=== PATIENT | male | born 1935 | race Caucasian/White ===

== ENCOUNTER → 2018-03-25 | Outpatient (CLI) | payer MEDICARE ==
--- NOTE | 2018-03-25 21:19 | Diagnostic Imaging Report ---
Parathyroid Scan Reason for exam: Hyperparathyroidism Radiopharmaceutical: Tc-99m sestamibi 27 mCi After intravenous administration of the radiopharmaceutical, immediate and 2-hour planar images of the neck and upper chest were obtained. Tomographic images of the neck and upper chest were obtained following the initial planar images. A focal area of persistent tracer activity is seen inferior to the lower pole of the right thyroid lobe on the delayed planar images. No focal abnormality is identified on the initial planar and the tomographic images. Impression: Single enlarged hypermetabolic parathyroid gland is strongly suspected immediately inferior to the lower pole of the right thyroid lobe. Signed by: Dr. Joy Culver M.D. on 03/25/2018 9:16 PM
== END ==
LOC: NM 07:56
PROVIDERS: ATTEND Internal Medicine Medical Oncology
DX: E21.2 Other hyperparathyroidism (principal); E83.52 Hypercalcemia
CPT/HCPCS: 78071; 83970; A9500

== ENCOUNTER 2018-05-18 05:45 | Inpatient (IN) | payer MEDICARE ==
--- NOTE | 2018-05-15 10:00 | Diagnostic Imaging Report ---
PROCEDURE: X-RAY CHEST, TWO VIEWS COMPARISON: 07/07/2012. INDICATIONS: PREOPERATIVE CHEST XRAY FOR THYROID SURGERY FINDINGS: The lungs are well-inflated. No focal airspace consolidation, pleural effusion, or pneumothorax. Mild prominence of the pulmonary interstitium. Stable cardiomediastinal contour with tortuosity and atherosclerotic calcification of the thoracic aorta. Normal heart size. No acute osseous abnormalities. CONCLUSION: No acute cardiopulmonary abnormality. Mild interstitial prominence likely reflects age-related fibrotic changes. Dictated by: Reginaldo Garcia M.D. on 05/15/2018 at 10:10 Electronically approved by: Reginaldo Garcia M.D. on 05/15/2018 at 10:10
[2018-05-15 10:07] LABS: BASOPHILS # (AUTO) 0.5 (0.0-0.1); BASOPHILS % 2.3 % (0.0-1.0); EOSINOPHILS # (AUTO) 0.2 (0.0-0.4); EOSINOPHILS % 1.1 % (0.0-6.0); HEMATOCRIT 55.2 % (38.2-49.6); HEMOGLOBIN 16.9 g/dL (14.0-18.0); LYMPHOCYTES # (AUTO) 1.2 (1.0-3.2); LYMPHOCYTES % 6.2 % (18.0-39.1); MEAN CORPUSCULAR HEMOGLOBIN 26.5 pg (28-32); MEAN CORPUSCULAR HGB CONC 30.6 g/dL (31-35); MEAN CORPUSCULAR VOLUME 86.5 fL (81-99); MONOCYTES # (AUTO) 1.5 (0.2-0.8); MONOCYTES % 7.3 % (4.4-11.3); NEUTROPHILS # (AUTO) 15.9 (2.1-6.9); NEUTROPHILS % 79.6 % (38.7-80.0); PLATELET COUNT 584 x10e3/uL (140-360); RED BLOOD COUNT 6.38 x10e6/uL (4.3-5.7); RED CELL DISTRIBUTION WIDTH 22.8 % (11.7-14.4)
[2018-05-15 10:30] LABS: ALBUMIN 3.7 g/dL (3.5-5.0); ALBUMIN/GLOBULIN RATIO 0.9 (0.8-2.0); ANION GAP 12.3 mmol/L (8-16); CALCIUM 11.1 mg/dL (8.4-10.2); CREATININE, SERUM 1.21 mg/dL (0.72-1.25); POTASSIUM 4.3 mmol/L (3.5-5.1)
[2018-05-15 12:17] LABS: ANISOCYTOSIS SLIGHT; EOSINOPHILS % (MANUAL) 2 % (0-7); LYMPHOCYTES % (MANUAL) 3 % (19-48); MONOCYTES % (MANUAL) 5 % (3.4-9.0); NEUTROPHILS % (MANUAL) 85 % (40-74); PLATELET ESTIMATE SLIGHTLY INCREASED; PLATELET MORPHOLOGY COMMENT FEW LARGE; RBC MORPHOLOGY COMMENT NORMAL
[~2018-05-18] VITALS: Ht 170.2 cm; Wt 67.4 kg
[~2018-05-18 05:45] MED LIST: AMLODIPINE BESYL5 MG PO; ASPIR 8181 MG PO; ATORVASTATIN CA20 MG PO; AVODART0.5 MG PO; CENTRUM COMPLE1 EACH PO; HYDROCHLOROTHIA25 MG PO; TAMSULOSIN HCL0.4 MG PO
--- OUTSIDE RECORDS SUMMARY | 2018-05-18 05:47 | XMS REPORT ---
Author Author [facility] Address Unknown Phone Unavailable Care Team Providers Care Biomedical Engineering Technician Name Role Phone Alexei ELLIS Unavailable Unavailable CORY CARTER Unavailable Unavailable Problems This patient has no known problems. Allergies, Adverse Reactions, Alerts This patient has no known allergies or adverse reactions. Medications This patient has no known medications. Results Test Description Test Time Test Comments Text Results Atomic Results Result Comments CHEST 2 VIEWS 2018-05-15 10:10:00 [place] [address] Patient Name: VINAY RUSSELL MR #: [id number] : 1935 Age/Sex: 83/M Req #: [id number] Adm Physician: Ordered by: REKHA ELLIS MD Report #: [id number] Location: OR Room/Bed: Procedure: [id number] DX/CHEST 2 VIEWS Exam Date: 05/15/18 Exam Time: 0935 REPORT STATUS: Signed PROCEDURE: X-RAY CHEST, TWO VIEWS COMPARISON: 07/07/2012. INDICATIONS: PREOPERATIVE CHEST XRAY FOR THYROID SURGERY FINDINGS: The lungs are well-inflated. No focal airspace consolidation, pleural effusion, or pneumothorax. Mild prominence of the pulmonary interstitium. Stable cardiomediastinal contour with tortuosity and atherosclerotic calcification of the thoracic aorta. Normal heart size. No acute osseous abnormalities. CONCLUSION: No acute cardiopulmonary abnormality. Mild interstitial prominence likely reflects age-related fibrotic changes. Dictated by: Shine Cancino M.D. on 05/15/2018 at 10:10 Electronically approved by: Shine Cancino M.D. on 05/15/2018 at 10:10 Dictated By: SHINE CANCINO MD 1010 Transcribed By: THA on 05/15/18 1010 COPY TO: REKHA ELLIS MD PARATHYROID IMAGING W SPECT 2018-03-25 21:12:00 [place] [address] Patient Name: VINAY RUSSELL MR #: [id number] : 1935 Age/Sex: 83/M Req #: [id number] Adm Physician: Ordered by: CORY CARTER MD Report #: [id number] Location: [place] Room/Bed: Procedure: [id number] NM/PARATHYROID IMAGING W SPECT Exam Date: 03/25/18 Exam Time: 0835 REPORT STATUS: Signed Parathyroid Scan Reason for exam: Hyperparathyroidism Radiopharmaceutical: Tc-99m sestamibi 27 mCi After intravenous administration of the radiopharmaceutical, immediate and 2-hour planar images of the neck and upper chest were obtained. Tomographic images of the neck and upper chest were obtained following the initial planar images. A focal area of persistent tracer activity is seen inferior to the lower pole of the right thyroid lobe on the delayed planar images. No focal abnormality is identified on the initial planar and the tomographic images. Impression: Single enlarged hypermetabolic parathyroid gland is strongly suspected immediately inferior to the lower pole of the right thyroid lobe. Signed by: Dr. Justyna Culver M.D. on 03/25/2018 9:16 PM Dictated By: JUSTYNA CULVER MD 15 Transcribed By: SENAIT on 03/25/182115 COPY TO: CORY CARTER MD
[2018-05-18] MEDS ORDERED: BUPIVACAINE 0.25%/EPI 30ML SDV INJ ONE (08:16)
[2018-05-18] MEDS ORDERED: MORPHINE SULFATE INJ 4 MG/ML INJ IV PRN (10:30)
[2018-05-18] MEDS ORDERED: MORPHINE SULFATE 2 MG/ML SYR IV PRN (10:45)
[2018-05-18] MEDS ORDERED: FENTANYL CITRATE/PF 100MCG/2 ML INJ ONE ×2 (11:11→19:16)
--- NOTE | 2018-05-18 13:28 | Operative Report ---
DATE OF PROCEDURE: PREOPERATIVE DIAGNOSIS: Primary hyperparathyroidism. POSTOPERATIVE DIAGNOSIS: Primary hyperparathyroidism. OPERATION PERFORMED: Neck exploration with a resection of right lower parathyroid adenoma. PRODUCT ASSEMBLER: Dr. Miguel Mccormick and Cathryn MAYNARD. ANESTHESIA: General. COMPLICATIONS: None. ESTIMATED BLOOD LOSS: Minimal. DESCRIPTION OF PROCEDURE: With the patient lying in bed in the supine position under good general endotracheal anesthesia, the neck was prepped with Betadine solution and draped in the usual manner. A collar incision was made. It was carried down through the subcutaneous tissue and through the platysma. Flaps were then developed superiorly and inferiorly. The strap muscles were then at the midline, and the thyroid was identified. Flaps were then developed on both sides. Exploration of the right side of the neck at this point, the recurrent laryngeal nerve was identified and then the right lower pole parathyroid, which was tightly adherent to the lower pole of the right side of the thyroid, was obviously enlarged and consistent with the suspected parathyroid adenoma. The upper pole parathyroid on the right side was found to be small and present, consistent with a normal suppressed gland. The left side was then explored, and both the upper and lower parathyroids were identified. They were both small and suppressed. All of this was, therefore, consistent with an adenoma of the right lower parathyroid location. The adenoma was then resected and sent for pathological examination, which came back consistent with an adenoma. The neck was then irrigated. Hemostasis was ascertained, and the wound was then closed in layers. The strap muscles at the midline were then reapproximated with interrupted sutures of 3-0 Vicryl. The platysma was reapproximated with 3-0 Vicryl, and the skin was closed with clips. A dressing was applied. The sponge, lap and needle count was correct. The patient tolerated the procedure well and returned to the recovery room in stable condition. Job#: [id number] MANSOOR
[2018-05-18 13:56] VITALS: BP 144/63
[2018-05-18] MEDS ORDERED: LIDOCAINE HCL 2% LOCAL INJ 5 ML SDV VIAL INJ ONE (14:11)
[2018-05-18] MEDS ORDERED: SEVOFLURANE INHAL SOLN 250 ML PEN BTL ONE (14:11)
[2018-05-18] MEDS ORDERED: ONDANSETRON HCL INJ 2 MG/ML VIAL ONE (14:11)
[2018-05-18] MEDS ORDERED: ROCURONIUM BROMIDE 10 MG/ML 5ML VIAL ONE (14:11)
[2018-05-18] MEDS ORDERED: DEXAMETHASONE SOD PHOS INJ 4 MG/ML VIAL ONE (14:11)
[2018-05-18] MEDS ORDERED: PROPOFOL IV EMULSION 10 MG/ML 20 ML VIAL ONE (14:11)
[2018-05-18] MEDS ORDERED: VASOPRESSIN INJ 20 UNIT/ML VIAL ONE (14:11)
[2018-05-18] MEDS: DEXTROSE 5%/LACTATED RINGERS 1,000 ML IV SCH (14:30)
[2018-05-18 16:00] VITALS: BP 147/63
[2018-05-18] MEDS ORDERED: CEPACOL SORE THROAT LOZENGES PO PRN (18:00)
[2018-05-18 20:00] VITALS: BP 148/70
[2018-05-18 20:05] VITALS: BP 148/70
[2018-05-18] MEDS: ATORVASTATIN 20 MG TAB PO SCH (20:49)
[2018-05-18] MEDS: HYDROCODONE/APAP 5MG-325MG TAB PO PRN (22:30)
[2018-05-19] VITALS (8 sets, daily range): BP systolic 124–149; BP diastolic 58–65
[2018-05-19] MEDS: DEXTROSE 5%/LACTATED RINGERS 1,000 ML IV SCH ×2 (05:19→20:30)
[2018-05-19 06:01] LABS: BASOPHILS # (AUTO) 0.3 (0.0-0.1); BASOPHILS % 1.2 % (0.0-1.0); EOSINOPHILS # (AUTO) 0.1 (0.0-0.4); EOSINOPHILS % 0.6 % (0.0-6.0); HEMATOCRIT 49.6 % (38.2-49.6); HEMOGLOBIN 14.9 g/dL (14.0-18.0); LYMPHOCYTES # (AUTO) 1.1 (1.0-3.2); LYMPHOCYTES % 4.2 % (18.0-39.1); MEAN CORPUSCULAR VOLUME 86.6 fL (81-99); MONOCYTES # (AUTO) 1.3 (0.2-0.8); MONOCYTES % 5.3 % (4.4-11.3); NEUTROPHILS # (AUTO) 21.7 (2.1-6.9); NEUTROPHILS % 86.5 % (38.7-80.0); PLATELET COUNT 598 x10e3/uL (140-360); RED BLOOD COUNT 5.73 x10e6/uL (4.3-5.7); RED CELL DISTRIBUTION WIDTH 22.5 % (11.7-14.4)
[2018-05-19 06:39] LABS: ANION GAP 11.7 mmol/L (8-16); CALCIUM 10.3 mg/dL (8.4-10.2); CREATININE, SERUM 1.25 mg/dL (0.72-1.25); POTASSIUM 4.7 mmol/L (3.5-5.1)
[2018-05-19 08:14] LABS: BAND NEUTROPHILS % (MANUAL) 1 %; LYMPHOCYTES % (MANUAL) 6 % (19-48); MONOCYTES % (MANUAL) 4 % (3.4-9.0); MYELOCYTES % (MANUAL) 2 % (0-0); NEUTROPHILS % (MANUAL) 84 % (40-74)
[2018-05-19 08:15] LABS: ANISOCYTOSIS SLIGHT; PLATELET ESTIMATE SLIGHTLY INCREASED; PLATELET MORPHOLOGY COMMENT NORMAL; RBC MORPHOLOGY COMMENT NORMAL
[2018-05-19] MEDS: AMLODIPINE BESYLATE 5 MG TAB PO SCH (08:47)
[2018-05-19] MEDS: DUTASTERIDE 0.5 MG CAP PO SCH (08:47)
[2018-05-19] MEDS: HYDROCHLOROTHIAZIDE 25 MG TAB PO SCH (08:47)
[2018-05-19] MEDS: TAMSULOSIN HCL 0.4 MG CAP PO SCH (08:47)
[2018-05-19] MEDS: HYDROCODONE/APAP 5MG-325MG TAB PO PRN ×2 (09:09→17:38)
[2018-05-19] MEDS: ATORVASTATIN 20 MG TAB PO SCH (20:30)
[2018-05-20] VITALS: BP 149/67
[2018-05-20] MEDS: HYDROCODONE/APAP 5MG-325MG TAB PO PRN (00:08)
[2018-05-20 04:00] VITALS: BP 135/76
[2018-05-20 08:07] VITALS: BP 133/60
[2018-05-20 10:14] VITALS: BP 133/60
[2018-05-20] MEDS: TAMSULOSIN HCL 0.4 MG CAP PO SCH (10:14)
[2018-05-20] MEDS: AMLODIPINE BESYLATE 5 MG TAB PO SCH (10:14)
[2018-05-20] MEDS: DUTASTERIDE 0.5 MG CAP PO SCH (10:14)
[2018-05-20] MEDS: HYDROCHLOROTHIAZIDE 25 MG TAB PO SCH (10:14)
[2018-05-20 12:19] VITALS: BP 149/67
[2018-05-20] MEDS ORDERED: TYLENOL # 31 EA PO (14:30)
[2018-05-20] MEDS ORDERED: KEFLEX500 MG PO (14:31)
[2018-06-19] MEDS ORDERED: ALPRAZOLAM0.25 MG PO (15:18)
== END 2018-05-20 15:44 | disposition home or self-care (01) | DRG 627 ==
LOC: OR 05:45 → PACU V 10:33 → MED/SURG 13:47
PROVIDERS: ADMIT Surgery; ATTEND Surgery
PROC: 0GBN0ZZ Excision of Right Inferior Parathyroid Gland, Open Approach (ICD-10-PCS; principal; 2018-05-18 08:45)
DX: D35.1 Benign neoplasm of parathyroid gland (principal); E21.0 Primary hyperparathyroidism; I10 Essential (primary) hypertension; F17.210 Nicotine dependence, cigarettes, uncomplicated; E78.5 Hyperlipidemia, unspecified; Z01.812 Encounter for preprocedural laboratory examination
CPT/HCPCS: 36415; 71046; 80048; 80053; 82310; 83970; 85025; 86850; 86900; 88305; 88331; 93005; J1100; J2001; J2405

== ENCOUNTER 2018-06-22 07:43 | Observation (INO) | payer MEDICARE ==
[~2018-06-22] VITALS: Ht 170.2 cm; Wt 59.0 kg
[~2018-06-22 07:43] MED LIST changes: +ALPRAZOLAM0.25 MG PO; +KEFLEX500 MG PO; +TYLENOL # 31 EA PO
[2018-06-22 09:25] LABS: BASOPHILS # (AUTO) 0.6 (0.0-0.1); BASOPHILS % 2.7 % (0.0-1.0); EOSINOPHILS # (AUTO) 0.5 (0.0-0.4); EOSINOPHILS % 2.2 % (0.0-6.0); HEMATOCRIT 51.7 % (38.2-49.6); HEMOGLOBIN 16.1 g/dL (14.0-18.0); LYMPHOCYTES # (AUTO) 1.7 (1.0-3.2); LYMPHOCYTES % 7.3 % (18.0-39.1); MEAN CORPUSCULAR HEMOGLOBIN 26.6 pg (28-32); MEAN CORPUSCULAR HGB CONC 31.1 g/dL (31-35); MEAN CORPUSCULAR VOLUME 85.5 fL (81-99); MONOCYTES # (AUTO) 1.5 (0.2-0.8); MONOCYTES % 6.4 % (4.4-11.3); NEUTROPHILS # (AUTO) 17.6 (2.1-6.9); NEUTROPHILS % 77.5 % (38.7-80.0); PLATELET COUNT 613 x10e3/uL (140-360); RED BLOOD COUNT 6.05 x10e6/uL (4.3-5.7); RED CELL DISTRIBUTION WIDTH 23.5 % (11.7-14.4)
[2018-06-22] MEDS ORDERED: IOPAMIDOL 610MG/1ML 300 MG/ML VIAL IV ONE (09:25)
[2018-06-22] MEDS ORDERED: BELLADONNA/OPIUM 30 MG SUPP RC ONE (09:25)
[2018-06-22 09:36] LABS: INR 0.96; PROTHROMBIN TIME 13.7 seconds (11.9-14.5)
[2018-06-22 09:37] LABS: PARTIAL THROMBOPLASTIN TIME 39.6 seconds (23.8-35.5)
[2018-06-22 09:43] LABS: ALANINE AMINOTRANSFERASE 17 IU/L (0-55); ALBUMIN 3.6 g/dL (3.5-5.0); ALBUMIN/GLOBULIN RATIO 0.8 (0.8-2.0); ALKALINE PHOSPHATASE 135 IU/L (40-150); ANION GAP 16.7 mmol/L (8-16); BLOOD UREA NITROGEN 19 mg/dL (7-26); BUN/CREATININE RATIO 17 (6-25); CALCIUM 9.8 mg/dL (8.4-10.2); CARBON DIOXIDE 29 mmol/L (22-29); CHLORIDE 98 mmol/L (98-107); CREATININE, SERUM 1.15 mg/dL (0.72-1.25); EST GLOMERULAR FILTRATION RATE > 60 ML/MIN (60-); GLUCOSE 104 mg/dL (74-118); POTASSIUM 5.7 mmol/L (3.5-5.1); SODIUM 138 mmol/L (136-145)
[2018-06-22 09:52] LABS: CLARITY,URINE SL CLOUDY (CLEAR); COLOR,URINE RED (YELLOW); PROTEIN,URINE DIPSTICK TRACE (NEGATIVE)
[2018-06-22 09:53] LABS: BILIRUBIN,URINE NEGATIVE (NEGATIVE); KETONES,URINE NEGATIVE (NEGATIVE); LEUKOCYTE ESTERASE ,URINE NEGATIVE (NEGATIVE); NITRITE,URINE NEGATIVE (NEGATIVE); URINE UROBILINOGEN 0.2 mg/dL (0.2 - 1)
[2018-06-22 10:04] LABS: EOSINOPHILS % (MANUAL) 2 % (0-7); LYMPHOCYTES % (MANUAL) 6 % (19-48); MONOCYTES % (MANUAL) 7 % (3.4-9.0); MYELOCYTES % (MANUAL) 2 % (0-0); NEUTROPHILS % (MANUAL) 79 % (40-74); PLATELET ESTIMATE SLIGHTLY INCREASED; PLATELET MORPHOLOGY COMMENT FEW GIANT; RBC MORPHOLOGY COMMENT NORMAL
[2018-06-22 10:05] LABS: ANISOCYTOSIS SLIGHT
[2018-06-22 14:30] VITALS: BP 153/74
--- NOTE | 2018-06-22 14:30 | NUR ---
Patient arrived from PACU, fully awake and alert. Vital signs are stable. POC discussed. Son at the bedside. Bed in lowest position, locked and call roberts within reach.
--- NOTE | 2018-06-22 14:50 | NUR ---
Spoke to Dr. Londono regarding admission. Orders per EMR
[2018-06-22 15:07] VITALS: BP 167/69
[2018-06-22 15:16] VITALS: BP 167/69
[2018-06-22] MEDS ORDERED: BELLADONNA/OPIUM 30 MG SUPP RC PRN (15:45)
[2018-06-22] MEDS: DEXTROSE 5%/0.45% SOD CHL 1,000 ML IV SCH ×2 (16:08→20:59)
[2018-06-22 16:30] VITALS: BP 148/65
[2018-06-22] MEDS: AMLODIPINE BESYLATE 5 MG TAB PO SCH (17:40)
[2018-06-22] MEDS: HYDROCHLOROTHIAZIDE 25 MG TAB PO SCH (17:40)
[2018-06-22] MEDS ORDERED: ONDANSETRON HCL INJ 2 MG/ML VIAL ONE (17:46)
[2018-06-22] MEDS ORDERED: DEXAMETHASONE SOD PHOS INJ 4 MG/ML VIAL ONE (17:46)
[2018-06-22] MEDS ORDERED: LIDOCAINE HCL 2% LOCAL INJ 5 ML SDV VIAL INJ ONE (17:46)
[2018-06-22] MEDS ORDERED: SEVOFLURANE INHAL SOLN 250 ML PEN BTL ONE (17:46)
[2018-06-22] MEDS ORDERED: PROPOFOL IV EMULSION 10 MG/ML 20 ML VIAL ONE (17:46)
[2018-06-22] MEDS ORDERED: CEFAZOLIN SOD 1 GM VIAL ONE (17:46)
[2018-06-22] MEDS ORDERED: VASOPRESSIN INJ 20 UNIT/ML VIAL ONE (17:46)
[2018-06-22] MEDS ORDERED: SOD POLYSTYRENE SULFONATE SUSP 15 GM/60 ML BTL PR NR (18:00)
[2018-06-22] MEDS ORDERED: FENTANYL CITRATE/PF 100MCG/2 ML INJ ONE (18:34)
--- NOTE | 2018-06-22 19:00 | NUR ---
Report given to oncoming shift. Call roberts within reach.
[2018-06-22 20:00] VITALS: BP 117/57
[2018-06-22 21:44] VITALS: BP 148/65
[2018-06-23] VITALS (8 sets, daily range): BP systolic 119–134; BP diastolic 56–68
[2018-06-23 05:50] LABS: BASOPHILS # (AUTO) 0.3 (0.0-0.1); BASOPHILS % 1.3 % (0.0-1.0); EOSINOPHILS # (AUTO) 0.2 (0.0-0.4); EOSINOPHILS % 0.7 % (0.0-6.0); HEMATOCRIT 43.1 % (38.2-49.6); HEMOGLOBIN 13.3 g/dL (14.0-18.0); LYMPHOCYTES # (AUTO) 1.4 (1.0-3.2); LYMPHOCYTES % 5.4 % (18.0-39.1); MEAN CORPUSCULAR HEMOGLOBIN 26.5 pg (28-32); MEAN CORPUSCULAR HGB CONC 30.9 g/dL (31-35); MEAN CORPUSCULAR VOLUME 85.9 fL (81-99); MONOCYTES # (AUTO) 1.6 (0.2-0.8); MONOCYTES % 6.2 % (4.4-11.3); NEUTROPHILS # (AUTO) 21.2 (2.1-6.9); NEUTROPHILS % 82.9 % (38.7-80.0); PLATELET COUNT 557 x10e3/uL (140-360); RED BLOOD COUNT 5.02 x10e6/uL (4.3-5.7); RED CELL DISTRIBUTION WIDTH 22.7 % (11.7-14.4)
[2018-06-23 06:13] LABS: ANION GAP 14.4 mmol/L (8-16); POTASSIUM 4.4 mmol/L (3.5-5.1)
[2018-06-23 08:31] LABS: HOWELL-JOLLY BODIES FEW; HYPOCHROMASIA SLIGHT; LYMPHOCYTES % (MANUAL) 5 % (19-48); METAMYELOCYTES % (MANUAL) 1 % (0-0); MONOCYTES % (MANUAL) 8 % (3.4-9.0); MYELOCYTES % (MANUAL) 3 % (0-0); NEUTROPHILS % (MANUAL) 82 % (40-74)
[2018-06-23 08:32] LABS: ANISOCYTOSIS SLIGHT; PLATELET ESTIMATE SLIGHTLY INCREASED; PLATELET MORPHOLOGY COMMENT MANY LARGE; RBC MORPHOLOGY COMMENT NORMAL
--- NOTE | 2018-06-23 08:59 | NUR ---
SOCIAL WORK INITIAL ASSESSMENT Airfield Engineer Officer to bedside to discuss plan of care with patient/family. CM/SW role and care transitions discussed. Anticipated discharge plan discussed along with duration of care. CM/SW discussed patients right to make decisions in care. CM/SW work hours given. Patient lives: IN OWN HOUSE WITH A FRIEND Admit/Transfer: VIA HOME POA/Emergency contact: YASEMIN RUSSELL NUMBER ON FACESHEET Current/Previous Home Health: NONE PCP/Follow-up Care: TEREZA Current/Previous DME: NONE Other Services: NONE Employment Status: RETIRED Areas of Concerns: NONE Referral Needs: NONE Education Needs: NONE IMM/PORTILLO given and signed (if applicable): PORTILLO Goal for discharge:RETURN HOME INDEPENDENTLY CM/SW left business card at the bedside with contact information. Name and number was also written on the patients whiteboard. Patient verbalized understanding of discussion. CM will follow-up with ongoing discharge and transition of care needs.
[2018-06-23] MEDS: ALPRAZOLAM 0.25 MG TAB PO SCH ×2 (09:00→17:00)
--- NOTE | 2018-06-23 10:00 | NUR ---
Patient ambulating in room without any complaints. Call roberts within reach.
[2018-06-23 10:16] LABS: BLOOD UREA NITROGEN 20 mg/dL (7-26); BUN/CREATININE RATIO 18 (6-25); CREATININE, SERUM 1.11 mg/dL (0.72-1.25); EST GLOMERULAR FILTRATION RATE > 60 ML/MIN (60-)
[2018-06-23] MEDS: AMLODIPINE BESYLATE 5 MG TAB PO SCH (10:27)
[2018-06-23] MEDS: HYDROCHLOROTHIAZIDE 25 MG TAB PO SCH (10:27)
[2018-06-23] MEDS: DEXTROSE 5%/0.45% SOD CHL 1,000 ML IV SCH ×2 (11:50→22:05)
--- NOTE | 2018-06-23 13:20 | NUR ---
Visit made by the Spiritual Care Department Pastoral Visitor, Luna Salmon. PV provided pastoral presence, prayer, hospitality, and supportive listening. Pastoral Visitor informed pt/family of the scope of [facility] and availability. [employer] [place] Sales Recruiter Spiritual Care Department O: [phone] Pager: [phone] ([phone] number calling from)
--- NOTE | 2018-06-23 15:57 | Consultation ---
DATE OF CONSULTATION: June 23, 2018 An 82-year-old gentleman who just underwent TURB. Please see Dr. Brent Nunes's note for details. He had a history of bladder tumor. Renal consulted for electrolyte imbalance with mild acute kidney injury. Labs show significantly elevated white count of 25,000 with a hemoglobin of 13.3. Has a sodium of 137, potassium 4.4. It was elevated at 5.7 earlier with a creatinine of 1.15. LFTs shows slightly elevated AST. Total proteins significantly elevated at 8.2 with a globulin of 4.6. He is currently awake, alert and sitting up in no apparent distress. He has had prior history of parathyroid gland surgery. He had a right lower lobe parathyroid adenoma. History of prior tobacco addiction. History of hypertension and chronic kidney disease apparently. PHYSICAL EXAMINATION GENERAL: Currently, awake, alert and sitting up in no apparent distress. VITALS: Blood pressure of 124/60, pulse rate 76, afebrile, oxygen saturation 95% on room air. HEAD AND NECK: Cornea clear. Oral mucosa dry. LUNGS: Relatively clear. HEART: S1 and S2 audible. ABDOMEN: Otherwise soft and nontender. LOWER EXTREMITIES: Shows no edema. CURRENT MEDICATIONS: The patient is on: 1. Hydrochlorothiazide 25 mg daily. 2. Amlodipine 2.5 mg daily. 3. Belladonna opium p.r.n. 4. Alprazolam. 5. Receiving D5-1/2 NS at 100 mL an hour. Urinalysis shows specific gravity of 1.01. Dipstick positive for blood. SOCIAL HISTORY: Quit smoking. Does not drink. ALLERGIES: NO APPARENT DRUG ALLERGIES. IMPRESSION AND PLAN 1. Elevated white count and elevated globulin fraction: Defer to Dr. Londono. 2. Status post transurethral resection of bladder for bladder mass: Rule out bladder cancer. Defer to Dr. Brent Nunes. 3. Acute kidney injury superimposed on chronic kidney disease, 3 with hyperkalemia: Appears multifactorial. Will discontinue Lasix. Please see orders. Discussed with the RN. Job#: [id number] KRISTI
--- NOTE | 2018-06-23 18:00 | NUR ---
Dr. Londono making rounds. Patient will be going home tomorrow. Call roberts within reach.
[2018-06-24] VITALS: BP 135/62
[2018-06-24 04:00] VITALS: BP 134/60
[2018-06-24 05:49] LABS: ALANINE AMINOTRANSFERASE 10 IU/L (0-55); ALBUMIN 2.9 g/dL (3.5-5.0); ALKALINE PHOSPHATASE 107 IU/L (40-150); ANION GAP 11.3 mmol/L (8-16); BLOOD UREA NITROGEN 20 mg/dL (7-26); BUN/CREATININE RATIO 18 (6-25); CALCIUM 8.2 mg/dL (8.4-10.2); CARBON DIOXIDE 29 mmol/L (22-29); CHLORIDE 100 mmol/L (98-107); CREATININE, SERUM 1.14 mg/dL (0.72-1.25); EST GLOMERULAR FILTRATION RATE > 60 ML/MIN (60-); GLUCOSE 112 mg/dL (74-118); POTASSIUM 4.3 mmol/L (3.5-5.1); SODIUM 136 mmol/L (136-145)
--- NOTE | 2018-06-24 06:50 | NUR ---
rounded with police shift commander nurse, patient aware of change. Patient in no distress, call roberts within reach
[2018-06-24 07:40] VITALS: BP 121/56
[2018-06-24 07:45] VITALS: BP 121/56
[2018-06-24] MEDS: DEXTROSE 5%/0.45% SOD CHL 1,000 ML IV SCH (07:54)
[2018-06-24] MEDS: ALPRAZOLAM 0.25 MG TAB PO SCH (09:38)
[2018-06-24] MEDS: AMLODIPINE BESYLATE 5 MG TAB PO SCH (09:38)
--- NOTE | 2018-06-24 10:05 | Discharge Summary ---
Mr. Real is an 83-year-old white male who was brought for hematuria. HISTORY OF PAST ILLNESS: Please review my history and physical on admission. Routine lab investigations were done consisting of CBC, which showed a hemoglobin of 16.1, hematocrit 51.7, white count of 22,700, and platelets were 613,000. Sodium 138, potassium 5.7, chloride 98, CO2 29, BUN 19, creatinine 1.15. Consultation with Dr. Brent Nunes was obtained. The patient had Kayexalate 30 g, which brought to the potassium down to 4.4 on the following day. The patient also had a phlebotomy of 350 mL, which brought the hematocrit down to 43.1. The patient had TURB. The patient was doing remarkably well today. Subsequently, being discharged at present time to continue: 1. Amlodipine 2.5 mg a day. 2. Xanax 0.25 mg p.o. b.i.d. 3. The patient also has been given antibiotics by Dr. Brent Nunes consisting of Keflex 500 mg 1 p.o. b.i.d. 4. Also, tramadol 50 mg 1 tablet q.4-6 h. p.r.n. I have given him an appointment on July 15, 2018, at 2:30 for followup at my office because I have to wait for the pathology report. FINAL DIAGNOSES 1. Bladder cancer. 2. Hematuria. 3. Polycythemia vera. 4. Status post phlebotomy. 5. Hypertension. 6. Hyperkalemia. 7. Anxiety disorder. 8. Hypoproteinemia. 9. Hyperglobulinemia. 10. Status post resection of adenoma of the parathyroid. The patient will be followed up by me as outpatient. Job#: [id number] KRISTI
[2018-06-24] MEDS ORDERED: ULTRAM50 MG PO (11:51)
[2018-06-24] MEDS ORDERED: KEFLEX500 MG PO (11:52)
[2018-06-24 11:53] VITALS: BP 132/63
--- NOTE | 2018-06-24 13:25 | NUR ---
discharge instructions given to patient and son, both verbalized understanding. Teaching about maier care done and both verbalized understanding. IV discontinued at this time, catheter in tact, and small dressing applied. Patient vitals are stable, and patient is in no distress. Patient to be wheeled from via via wheelchair to personal auto for son to take home.
--- NOTE | 2018-06-24 13:29 | Diagnostic Imaging Report ---
PROCEDURE: X-RAY RETROGRADE PYELOGRAM COMPARISON: None. INDICATIONS: RIGHT DISTAL URETAL STONE FINDINGS: A total of 14 intraoperative spot images of the abdomen and pelvis were obtained. There is retrograde cannulization of both ureters with contrast injection. There is mild calyceal blunting on the right side. Cumulative fluoro time: 8 seconds Cumulative area dose product: 57.64 cGycm2 Cumulative air kerma: 1.56 mGy CONCLUSION: Retrograde pyelogram as described above. Los Reyna D.O. Dictated by: Los Reyna D.O. on 06/24/2018 at 13:40 Electronically approved by: Los Reyna D.O. on 06/24/2018 at 13:40
[2018-06-24 16:22] VITALS: BP 123/78
--- NOTE | 2018-06-25 13:41 | Operative Report ---
DATE OF PROCEDURE: June 22, 2018 PREOPERATIVE DIAGNOSIS: Bladder mass. POSTOPERATIVE DIAGNOSES 1. Bladder mass. 2. Trabeculated bladder with cellules, saccules and 1 small diverticulum, right side of the bladder. 3. Intravesical component of the prostate. OPERATIONS PERFORMED 1. Cystoscopy. 2. Transurethral resection of bladder tumor. 3. Transurethral incision of bladder neck with electrovaporization of intravesical component. 4. Bilateral retrograde pyelograms. ANESTHESIA: Staff. ANESTHESIA: General. CYSTOSCOPIC FINDINGS: Urethra is normal. In the prostate, there is a high-riding middle bar with an intravesical component. The ureteral orifice could not initially be seen. The bladder showed grade 2-3 trabeculation with cellules, saccules and a small diverticulum on the right hand side. After incision of the intravesical component and electrovaporization, both ureteral orifices were seen. Retrograde pyelograms were done. 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 PROCEDURE: With the patient under satisfactory general anesthesia, the patient was placed in the supine position on the operating table. Legs were placed on stirrups. Genitalia was then prepped with Betadine soap and solution and draped in the usual manner. A #22-Setswana cystourethroscope was then passed per urethra into the bladder, and inspection of the bladder was done with a 30- and a 12-degree angle lens. At this point, the 70-degree angle lens was used to try to see the ureteral orifice, but this not possible. After that was done, then the urethra was dilated to a size 28 with a Lucas sound. The continuous flow resectoscope was passed per urethra into the bladder with no problems. At this point using the button electrode, the tumor, which was approximately 5 cm and nonpedunculated, was electro-fulgurated to decrease the size of the tumor itself. Once the size was decreased, it was easier to resect with the loop electrode. That is what was done. The loop electrode was changed from the button electrode and resection was done through the mucosa of the bladder and the lamina propria to hit the muscle fibers. Once that was done, the Ellik evacuator was used to remove all of the tumor that was in the bladder. At that point, I replaced the loop electrode with the button electrode and electro- fulgurated the bleeders from the resection site. At that point, an incision was made through the bladder neck - intravesical component in the midline. At that point, I was able then to see the ureteral orifices. At that point, my decision was to evaporate the segments of the intravesical component that had been incised in the midline. This was done using the button electrode. Once that was done, the resectoscope was removed and replaced with the cystoscope. With the 12-degree angle lens, I was able to look at the ureteral orifice with no problems. Using the #8 cone-tipped ureteral catheter, contrast media was injected retrograde up to both kidneys. Retrogrades will be reviewed by the radiologist. At this point, no bleeders were identified. The cystoscope was removed from the bladder and replaced with a 22-Setswana, 10 mL balloon catheter. The balloon was inflated without any difficulty. Irrigation was done until the return was clear. Once that was done, then a B and O suppository was placed in the rectum. The patient was taken to the recovery room in satisfactory condition. I discussed the case with the family members that were present, and gave them a copy of the video pictures that were taken during the case. Job#: [id number] KRISTI
== END 2018-06-24 13:15 | disposition home or self-care (01) ==
LOC: OR 07:43 → RAD HOLD 15:13 → PACU V 15:21 → IMCU 15:26
PROVIDERS: ADMIT Internal Medicine Medical Oncology; ATTEND Internal Medicine Medical Oncology
DX: C67.9 Malignant neoplasm of bladder, unspecified (principal); R31.0 Gross hematuria; N32.9 Bladder disorder, unspecified; E83.52 Hypercalcemia; E78.5 Hyperlipidemia, unspecified; D75.1 Secondary polycythemia; Z82.49 Family history of ischemic heart disease and other diseases of the circulatory system; F41.9 Anxiety disorder, unspecified; E87.1 Hypo-osmolality and hyponatremia; E87.5 Hyperkalemia; N17.9 Acute kidney failure, unspecified; N18.3 Chronic kidney disease, stage 3 (moderate); D72.829 Elevated white blood cell count, unspecified; Z87.891 Personal history of nicotine dependence; Z87.898 Personal history of other specified conditions; I12.9 Hypertensive chronic kidney disease with stage 1 through stage 4 chronic kidney disease, or unspecified chronic kidney disease; K21.9 Gastro-esophageal reflux disease without esophagitis; E77.8 Other disorders of glycoprotein metabolism; R77.1 Abnormality of globulin
CPT/HCPCS: 36415 ×3; 52235; 52601; 74420; 80051; 80053 ×2; 81003; 82565; 84520; 85025 ×2; 85610; 85730; 88307; 96361; C1758; G0378 ×3; J0690; J1100; J2001; J2405; J2704; Q9967; 88305

== ENCOUNTER → 2018-11-25 | Day surgery (SDC) | payer MEDICARE ==
[2018-11-19 13:36] LABS: BASOPHILS # (AUTO) 0.6 (0.0-0.1); BASOPHILS % 2.9 % (0.0-1.0); EOSINOPHILS # (AUTO) 0.4 (0.0-0.4); HEMATOCRIT 47.3 % (38.2-49.6); HEMOGLOBIN 14.9 g/dL (14.0-18.0); LYMPHOCYTES # (AUTO) 1.6 (1.0-3.2); LYMPHOCYTES % 7.3 % (18.0-39.1); MEAN CORPUSCULAR HEMOGLOBIN 25.8 pg (28-32); MEAN CORPUSCULAR HGB CONC 31.5 g/dL (31-35); MEAN CORPUSCULAR VOLUME 81.8 fL (81-99); MONOCYTES # (AUTO) 1.6 (0.2-0.8); MONOCYTES % 7.3 % (4.4-11.3); NEUTROPHILS # (AUTO) 16.4 (2.1-6.9); NEUTROPHILS % 74.2 % (38.7-80.0); PLATELET COUNT 529 x10e3/uL (140-360); RED BLOOD COUNT 5.78 x10e6/uL (4.3-5.7); RED CELL DISTRIBUTION WIDTH 21.8 % (11.7-14.4)
[2018-11-19 13:56] LABS: ALBUMIN 4.1 g/dL (3.5-5.0); ALBUMIN/GLOBULIN RATIO 1.2 (0.8-2.0); ANION GAP 13.4 mmol/L (8-16); CALCIUM 9.9 mg/dL (8.4-10.2); CREATININE, SERUM 1.24 mg/dL (0.72-1.25); POTASSIUM 4.4 mmol/L (3.5-5.1)
[~2018-11-25] MED LIST changes: +BELLADONNA/OPIUM 60 MG SUPP PR ONE; +BUSPIRONE HCL5 MG PO; +CEFAZOLIN SOD 2 GM/D5W 50ML 50 ML IV ONE; +DEXAMETHASONE SOD PHOS INJ 4 MG/ML VIAL ONE; +FAMOTIDINE 20 MG/2 ML VIAL IV ONE; +FENTANYL CITRATE/PF 100MCG/2 ML INJ ONE; +IOPAMIDOL 610MG/1ML 300 MG/ML VIAL IV ONE; +LIDOCAINE HCL 2% LOCAL INJ 5 ML SDV VIAL INJ ONE; +LORAZEPAM0.5 MG PO; +MIDAZOLAM HCL 2 MG/2 ML VIAL ONE; +ONDANSETRON HCL INJ 2MG/ML 2ML 2 MG/ML VIAL ONE; +PHENYLEPHRINE HCL 1% 10 MG/ML VIAL ONE; +PROPOFOL IV EMULSION 10 MG/ML 20 ML VIAL ONE; +SEVOFLURANE INHAL SOLN 250 ML PEN BTL ONE; +ULTRAM50 MG PO
[2018-11-25 16:45] VITALS: BP 120/66
--- NOTE | 2018-11-26 14:56 | Operative Report ---
DATE OF PROCEDURE: 11/25/2018 SURGEON: Brent Nunes MD PREOPERATIVE DIAGNOSIS: Bladder cancer. POSTOPERATIVE DIAGNOSIS: Bladder cancer in remission post chemotherapy treatment. OPERATION PERFORMED: Cystoscopy, retrograde pyelograms, and multiple bladder biopsies. ANESTHESIOLOGIST: Staff. ANESTHESIA: General. FINDINGS: The patient had a normal urethra. 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 I noted his previous transurethral incision of bladder neck. On the right side at approximately the 10 o'clock position, there was flagellation with some calcification of the previous tumor removal. No other tumors were noted in the bladder. Ureteral orifices were in normal position, normal shape, efflux was seen bilaterally. Retrograde pyelograms failed to show any hydroureteronephrosis or filling defects of the ureter, although the ureter was tortuous. PROCEDURE IN DETAIL: With the patient under satisfactory general anesthesia, the patient was placed in the supine position on the operating table. The legs were placed in stirrups. Genitalia was then prepped with Betadine soap and solution and draped in the usual manner. A #22 Ecuadorean cystourethroscope was passed per urethra into the bladder. Examination was done with findings as dictated above. Using a #8 cone-tip ureteral catheter, contrast media was injected retrograde up to both kidneys with findings as dictated above and this will be also reviewed by the radiologist. At this point, using the cup biopsy forceps, a biopsy was done of the trigone, posterior wall, dome, and anterior wall of the bladder together with the left and the right side. The site where the tumor was, I biopsied it and removed the flagellations as well as most of the calcification using a cup biopsy and these results were sent for pathological specimen. Next, the Bugbee electrode was used to electro fulgurate the sides of the biopsy as well as the old tumor site. At this point, the instruments were removed and the patient was taken to the recovery room in satisfactory condition. DISCHARGE INSTRUCTIONS: The patient was given Augmentin to take b.i.d. He was also given tramadol for pain. I discussed the case with the son, who will be passing all the information and pathology report to Dr. Londono, his oncologist when this is known. We will follow the patient again in two weeks in the office to check his urine. In the recovery room, he was given a B and O suppository for bladder spasms. He was sent home on his regular medications. Activity as tolerated as well as diet. MD MORAIMA Smith/DEEPALI /[id number]
== END | disposition home or self-care (01) ==
LOC: OR 10:24
PROVIDERS: ATTEND Urology
DX: C67.3 Malignant neoplasm of anterior wall of bladder (principal); N32.89 Other specified disorders of bladder; J44.9 Chronic obstructive pulmonary disease, unspecified; G47.33 Obstructive sleep apnea (adult) (pediatric); I10 Essential (primary) hypertension; E78.5 Hyperlipidemia, unspecified; R01.1 Cardiac murmur, unspecified; F41.9 Anxiety disorder, unspecified; F17.210 Nicotine dependence, cigarettes, uncomplicated; Z01.810 Encounter for preprocedural cardiovascular examination; Z01.812 Encounter for preprocedural laboratory examination; Z79.82 Long term (current) use of aspirin; Z92.21 Personal history of antineoplastic chemotherapy
CPT/HCPCS: 36415; 52214; 74420; 80053; 85025; 87086; 88300; 88305; 88342; 93005; C1758; J0690; J1100; J2001; J2250; J2370; J2405; J2704; Q9967